=== PATIENT | male | born 2000 | race Two or more races ===

== ENCOUNTER 2024-12-24 11:52 | Emergency (ER) | payer OTHER ==
[~2024-12-24] VITALS: Ht 177.8 cm; Wt 95.3 kg
[2024-12-24 12:33] VITALS: BP 141/84; O2SAT 100
[2024-12-24 17:33] LABS: COVID-19 AG POSITIVE (NEGATIVE)
[2024-12-24 17:49] LABS: BASO % 0.6 % (0.1-1.2); EOS # 0.15 (0.04-0.54); EOS % 1.9 % (0.7-7.0); LYMPH # 2.16 (1.18-3.74); LYMPH % 27.7 % (19.3-53.1); MEAN PLATELET VOLUME 10.30 fl (9.4-12.4); MONO # 0.89 (0.24-0.82); MONO % 11.4 % (4.7-12.5); NEUT # 4.52 (1.56-6.13); NEUT % 58.0 % (34.0-71.1); RED CELL DISTRIBUTION WIDTH 12.6 % (11.6-14.4)
[2024-12-24] MEDS ORDERED: BENZONATATE200 M1 PO (18:23)
[2024-12-24] MEDS ORDERED: ZYRTEC10 MG PO (18:23)
[2024-12-24] MEDS ORDERED: SINGULAIR10 MG PO (18:23)
[2024-12-24] MEDS ORDERED: DEXAMETHASONE SODIUM PHOSPHATE 4 MG/ML VIAL IM STA (18:24)
[2024-12-24] MEDS ORDERED: GUAIFENESIN/DEXTROMETHORPHAN 100MG/10ML BLIST.PACK PO STA (18:24)
[2024-12-24] MEDS ORDERED: DEXAMETHASONE SODIUM PHOSPHATE 4 MG/ML VIAL ONE (18:25)
[2024-12-24] MEDS ORDERED: GUAIFENESIN 200 MG/10 ML BLIST.PACK PO ONE (18:28)
== END 2024-12-24 18:39 | disposition home or self-care (01) ==
LOC: ER 11:52
PROVIDERS: Preventive Medicine Public Health & General Preventive Medicine
DX: U07.1 COVID-19 (principal)